=== PATIENT | female | born 1950 | race Hispanic/Latino ===

== ENCOUNTER 2016-11-28 06:24 | Day surgery (SDC) | payer MEDICARE ==
[2016-11-23 18:07] VITALS: BMI 24.4
[2016-11-28 07:13] VITALS: RESP 18
[2016-11-28] MEDS ORDERED: EPINEPHrine 1 mg/ml (1:1000) Inj ONE (07:23)
[2016-11-28] MEDS ORDERED: methylPREDNISolone Depo 80 mg/ml Inj ONE (07:23)
[2016-11-28] MEDS ORDERED: Bupivacaine 0.5% Inj(30mL) ONE (07:24)
[2016-11-28] MEDS ORDERED: Propofol 10 mg/ml Inj (20 ML) ONE (09:09)
[2016-11-28] MEDS ORDERED: Midazolam 2 MG/2 ML VIAL ONE (09:09)
[2016-11-28] MEDS ORDERED: Succinylcholine 200 mg/10 ml Inj IV ONE (09:10)
[2016-11-28] MEDS ORDERED: ePHEDrine 50 mg/ml Inj ONE (09:10)
[2016-11-28] MEDS ORDERED: Rocuronium 10 mg/ml (5 ml) ONE (09:10)
[2016-11-28] MEDS ORDERED: Lidocaine 4% (Laryng-O-Jet) Kit MM ONE (12:40)
[2016-11-28] MEDS ORDERED: Bacitracin Ointment 30 GM TUBE ONE ×2 (12:52→15:30)
[2016-11-28] MEDS ORDERED: Lactated Ringer's 1,000 ML IV ONE (14:20)
[2016-11-28] MEDS ORDERED: Dexamethasone 4 mg/1 ml ONE (14:45)
[2016-11-28] MEDS ORDERED: Lidocaine 1% Inj (20ml) IM ONE ×2 (15:03→15:06)
[2016-11-28] MEDS ORDERED: Neostigmine Methylsulfate 3mg/3ml Syringe IV ONE (15:32)
[2016-11-28] MEDS ORDERED: Bupivacaine 0.5% 50 ML IJ ONE (15:41)
[2016-11-28] MEDS ORDERED: methylPREDNISolone Depo 80 mg/ml Inj IM ONE (15:42)
[2016-11-28] MEDS ORDERED: Lactated Ringer's 500 ML IV ONE (16:02)
[2016-11-28] MEDS ORDERED: Dexamethasone 4 mg/1 ml IVP PRN (16:15)
[2016-11-28] MEDS ORDERED: HYDROmorphone 0.5 mg/0.5 ml ISec IVP PRN (16:15)
--- NOTE | 2016-11-28 16:47 | PCM.SURG1 ---
Surgeon's Initial Post Op Note - Surgeon's Notes Surgeon: Lucas Pediatric Speech Language Pathologist: OMAR Jacques Type of Anesthesia: General Endo Anesthesia Administered By: DR Jenkins Pre-Operative Diagnosis: post traumatic derangem,ent L wrist Operative Findings: Fx distal radius. tear triangular fibrocartilage complex. synovitis ulnocarpal joint Post-Operative Diagnosis: same Operation Performed: arthroscopic debridement Triangular fibrocartilage complex. arthroscopic partial synovectomy (wrist). closed reduction distal radius fx. intraraticular injection. applx short arm cast Specimen/Specimens Removed: synovium/cartilage Estimated Blood Loss: EBL {In ML}: 5 Blood Products Given: N/A Drains Used: No Drains Post-Op Condition: Good Date of Surgery/Procedure: 11/28/16 Time of Surgery/Procedure: 15:10 (time in room 14:20)
[2016-11-28] MEDS ORDERED: Naproxen 500 MG TAB PO ONE (18:30)
[2016-11-28 19:05] VITALS: BP 136/80; PULSE 70; TEMP 97.5; O2SAT 94
[2016-11-28] MEDS ORDERED: Naproxen 500 MG TAB PO SCH (21:00)
--- NOTE | 2016-11-29 20:51 | OP ---
PROCEDURE DATE: 11/28/2016 PREOPERATIVE DIAGNOSIS: Posttraumatic derangement of the left wrist. POSTOPERATIVE DIAGNOSES: 1. Tear of the triangular fibrocartilage complex, left wrist. 2. Posttraumatic synovitis, left wrist. 3. Distal radius fracture. PROCEDURES: 1. Surgical arthroscopy, debridement/partial resection of triangular fibrocartilage complex. 2. Surgical arthroscopy, partial synovectomy, left wrist. 3. Postreduction distal radius fracture. 4. Application of short-arm cast. 5. Positioning of fluoroscope, interpretation of video images. SURGEON: Cristhian Zavala MD PRODUCTION EXPERT: Leidy Reyes, certified registered nursing assistant professor of nursing. TYPE OF ANESTHESIA: Trach anesthesia. ANESTHESIA ADMINISTERED BY: Lalo Jenkins MD COMPLICATIONS: No complications. DRAINAGE: No drainage. OPERATIVE INDICATIONS: Jane Powers is a 66-year-old pain and restricted range of motion. The patient presents after initial evaluation with equivocal x-ray findings. MRI examination was accomplished, which showed evidence of distal radius fracture and tear of the cartilage in the wrist and the ulnocarpal compartment as well as . Pros, cons, risks and benefits of various approaches for this problem were discussed. Concept of benign neglect, concept of casting were discussed and eliminated by the patient. Concept of debridement of the wrist, post-reduction of the distal radius and application of ulnar cast were discussed, the possibility of stiffness, nerve injury, mechanical failure, infection, thromboembolic disease, secondary or tertiary surgery or even were discussed. The patient can only understand the discomfort and wished the surgery to be accomplished. OPERATIVE PROCEDURE: After having obtained informed consent from the patient and her , Rickey Powers, after having identified side, site, and procedure and a critical pause/time-out, after satisfactory induction of the anesthetic, the patient identified as Jane Powers, in the supine position with all bony prominences well padded, the left upper extremity was prepped and free-draped in the usual fashion for upper extremity surgery. The tourniquet had been applied, but is not yet inflated. After exsanguinating the limb using a 4-inch Esmarch bandage, the tourniquet which had been applied was inflated to 250 mmHg. Under the surgeon's direction, the fluoroscope was positioned, video images were generated and therapeutic decisions were made therefrom. AP and lateral image intensification views were obtained, which revealed evidence of the distal radius fracture. With the assistant store manager sales providing traction on the flexed elbow, the ulnar carpal joint of the left wrist was identified and the joint is insufflated with approximately 10 mL of 1% lidocaine without epinephrine. Using #11 blade, the clear space in the area of the lateral aspect of the triangular fibrocartilage complex was accomplished. A skin incision was carried down through the skin and subcutaneous tissue. Straight Hemostat was used to develop the portal. A blunt trocar was introduced. Triangulation was accomplished after the arthroscope was introduced. There was a great deal of synovitis and the tear of the triangular fibrocartilage complex immediately evidenced. Using #18-gauge spinal needle, followed by #11 blade at a point more dorsal to the ulnocarpal compartment using #11 blade followed by spreading the arthroscope on the lateral aspect, the triangular fibrocartilage complex is debrided. The wrist was probed and the tear was defined using combination of the 2.7 mm shaver, a 3.4 mm Dyonics suction punch and the arthroscopic wand, the ulnar triangular fibrocartilage complex tear was carefully debrided. Partial synovectomy was accomplished as well in both the ulnar carpal compartment and the mid carpal compartment using elevation of the arthroscopic shaver and the arthroscopic wand. This having been accomplished, partial synovectomy having been accomplished, debridement of the ulnocarpal joint was accomplished, debridement of the mid carpal joint was accomplished as well. The wound was thoroughly irrigated. After having performed the thorough partial synovectomy and after having debrided the TFCC tear, the portals were closed with interrupted Vicryl and nylon. Intraarticular injection was offered with Marcaine, Duramorph and Depo-Medrol. Kevon Arias compression dressing was applied after closed reduction of the wrist was accomplished. Fracture deformity of the distal radius was identified. The deformity was reversed and then flexion was accomplished in a very gentle Cotton-Loder position, a well-padded short arm cast was applied. Verification of position was offered on AP and lateral image intensification views. Kevon Arias compression dressing and short arm cast having been applied, the circulatory status was intact in Recovery. Cristhian Zavala MD
--- NOTE | 2016-12-01 14:27 | RAD ---
PROCEDURE: Intraoperative fluoroscopy HISTORY: LEFT WRIST COMPARISON: Not available TECHNIQUE: Intraoperative fluoroscopy was provided for left wrist. Total time of fluoroscopy was less than 1 hour. FINDINGS: Five fluoroscopic spot films are submitted. These are on file for review. IMPRESSION: Fluoroscopy provided.
== END 2016-11-28 19:05 | disposition home or self-care (01) ==
LOC: H.OPSURG 06:24
PROVIDERS: ATTEND Orthopaedic Surgery
DX: S62.102A Fracture of unspecified carpal bone, left wrist, initial encounter for closed fracture (principal); X58.XXXA Exposure to other specified factors, initial encounter; J45.909 Unspecified asthma, uncomplicated; E03.9 Hypothyroidism, unspecified; E78.5 Hyperlipidemia, unspecified; K21.9 Gastro-esophageal reflux disease without esophagitis
CPT/HCPCS: 29846; 29999; J0171; J0330; J0690; J1040; J1100; J2001; J2250; J2405; J2704; J2710; J3010; J7030; J7120